=== PATIENT | male | born 1985 ===

== ENCOUNTER → 2021-03-04 14:02 | Outpatient (BNVA) | payer SELFPAY | PROVIDERS: PCP Internal Medicine; Visit Provider Physician Assistant | DX: Z02.79 Encounter for issue of other medical certificate (principal) ==

== ENCOUNTER 2021-08-18 11:43 | Outpatient (REF) | payer OTHER, MEDICAID, SELFPAY ==
--- NOTE | ~2021-08-18 | XR_ITS ---
EXAMINATION: XR SACRUM AND COCCYX: 3 VIEWS CLINICAL INFORMATION: Sacrococcygeal disorders COMPARISON: None FINDINGS: No acute fracture or dislocation. Sacrum is intact. Sacrococcygeal alignment maintained. Mild narrowing of the L5-S1 disc space. Mild lateral sacroiliac arthrosis manifest by subchondral sclerosis and small marginal osteophytes. XR/XR sacrum coccyx min 2V IMPRESSION: No acute findings. Mild loss of disc space height at L5-S1. Mild bilateral sacroiliac arthrosis.
== END 2021-08-18 11:44 | disposition home or self-care (01) ==
LOC: HO.XRAY 11:43
PROVIDERS: Absent Provider Internal Medicine; PCP Internal Medicine; Visit Provider Nurse Practitioner
DX: M53.3 Sacrococcygeal disorders, not elsewhere classified (principal)
CPT/HCPCS: 72220

== ENCOUNTER 2022-12-10 14:44 | Outpatient (REF) | payer OTHER, MEDICAID, SELFPAY ==
[2022-12-10 18:50] LABS: Influenza A PCR NEGATIVE (Negative); Influenza B PCR NEGATIVE (Negative); Resp Syncy Virus RNA Qual PCR NEGATIVE (Negative); SARS COV2 PCR INHOUSE NEGATIVE (Negative)
== END 2022-12-10 14:45 | disposition home or self-care (01) ==
LOC: HO.LAB 14:44
PROVIDERS: Visit Provider Nurse Practitioner Family
DX: Z20.822 Contact with and (suspected) exposure to COVID-19 (principal); R09.89 Other specified symptoms and signs involving the circulatory and respiratory systems
CPT/HCPCS: 0241U

== ENCOUNTER 2024-02-11 08:24 | Outpatient (REF) | payer OTHER, SELFPAY ==
[2024-02-11 08:34] LABS: MANUAL DIFF FLAG NO
[2024-02-11 09:11] LABS: Basophils Percent Auto 0.6 % (0-2); Eosinophils Absolute Auto 0.1 X10*3/uL (0.0-0.4); Eosinophils Percent Auto 1.6 % (0-4); Hematocrit 43.1 % (42.0-52.0); Hemoglobin 14.5 g/dl (14.0-18.0); Imm Gran Abs Auto 0.02 X10*3/uL (0.00-0.03); Imm Gran Pct Auto 0.3 % (0.0-0.4); Lymphocytes Absolute Auto 2.7 X10*3/uL (1.2-4.9); Lymphocytes Percent Auto 39.6 % (20-40); Mean Corpuscular HGB Conc 33.6 g/dl (31.0-36.0); Mean Corpuscular Hemoglobin 28.6 pg (27.0-33.0); Monocytes Absolute Auto 0.4 X10*3/uL (0.1-1.2); Monocytes Percent Auto 5.4 % (2-11); Neutrophils Absolute Auto 3.6 x10*3/uL (2.0-8.3); Neutrophils Percent Auto 52.5 % (45-73); Platelet Count 281 X10*3/uL (160-400); Red Blood Count 5.07 X10*6/uL (4.60-5.80); Red Cell Distribution Width 13.3 % (11.0-16.0); White Blood Count 6.8 X10*3/uL (4.8-10.8)
[2024-02-11 09:48] LABS: Estimated Average Glucose 120 mg/dL; Hemoglobin A1c % 5.8 % (<6.0)
[2024-02-11 10:07] LABS: Alanine Aminotransferase 43 U/L (0-40); Albumin Level 4.5 g/dL (3.5-5.0); Alkaline Phosphatase 94 U/L (39-117); Anion Gap 11 (12-20); Aspartate Amino Transferase 31 U/L (5-37); Bilirubin Direct 0.1 mg/dL (0.0-0.5); Bilirubin Total 0.4 mg/dL (0.0-1.0); Blood Urea Nitrogen 14 mg/dL (9-16); Calcium 9.2 mg/dL (8.4-10.2); Carbon Dioxide 24 mmol/L (22-29); Chloride 109 mmol/L (96-108); Cholesterol 214 mg/dL (<200); Estimated Glomerular Filt Rate > 60; Glucose Random 96 mg/dL (60-115); HDL Cholesterol 40 mg/dL (>40); LDL Cholesterol Calculated 142 mg/dL (<100); Potassium 4.3 mmol/L (3.3-5.1); Sodium 140 mmol/L (135-145); Total Protein 7.5 g/dL (6.5-8.0); Triglycerides 161 mg/dL (<150)
[2024-02-11 10:11] LABS: TSH reflex Free T4 1.67 uIU/mL (0.32-4.0); Vitamin D 25-OH Total 39.4 ng/mL (>30)
[2024-02-11 10:59] LABS: Folate 13.1 ng/mL (> or = 4.0); Vitamin B12 408 pg/mL (200-900)
[2024-02-17 13:28] LABS: Testosterone, Total 245 ng/dL (250-1100)
[2024-02-17 18:02] LABS: HIV RNA PCR Qn Copies Not Detected Copies/mL; HIV RNA PCR Qn Log Copies Not Detected Log cps/mL
== END 2024-02-11 08:25 | disposition home or self-care (01) ==
LOC: HO.LAB 08:24
PROVIDERS: PCP Internal Medicine; Visit Provider Internal Medicine
DX: R53.83 Other fatigue (principal); N52.8 Other male erectile dysfunction
CPT/HCPCS: 36415; 80048; 80061; 80076; 82306; 82607; 82746; 83036; 84403; 84443; 85025; 87536; 87900

== ENCOUNTER 2024-04-30 12:39 | Outpatient (AMB) | payer OTHER, SELFPAY ==
--- NOTE | 2024-04-30 12:56 | MHC.OFFVIS ---
Intake Visit Reasons: erectile dysfunction Intake Note: Patient is present for erctile dysfunction Urology Medication:none Antibiotic Allergy:none Blood Thinner:none Pneumatic Tube Fitter Required: No Allergies No Known Allergies [NO KNOWN ALLERGIES] Allergy (Unknown, Verified 04/30/24 12:58) UNKNOWN HPI Comments Details: Jordan is here for evaluation for ED and low testosterone, he complains of decreased libido and low energy. Labs--02/11/24--Total Test-245. Will recheck labs, Free and TT, LH, FH levels. [facility]MERLY [facility], [facility]1983 Medical History (Updated 06/17/24 @ 08:17 by Zuleika Bynum MD) Numbness and tingling in both hands Mild persistent asthma without complication Elevated blood pressure reading Other male erectile dysfunction Class 2 obesity due to excess calories without serious comorbidity with body mass index (BMI) of 37.0 to 37.9 in adult Fatigue Hypersomnia Acute anxiety Social History Patient Tobacco Use Status: Never used Tobacco Review of Systems Const All systems reviewed & are unremarkable except as noted in HPI and below Reports no additional complaints Eyes Reports no additional complaints ENT Reports no additional complaints Card Reports no additional complaints Resp Reports no additional complaints GI Reports no additional complaints Reports as per HPI Musc Reports no additional complaints Skin/Breast Reports system reviewed and no additional complaints, except as documented Neuro Reports no additional complaints Psych Reports no additional complaints Endo Reports no additional complaints Adonis/Lymph Reports no additional complaints Aller/Immun Reports no additional complaints Physical Exam Const General: healthy appearing, no acute distress and well developed Orientation/consciousness: patient oriented x3 HEENT Head: Yes normocephalic and Yes atraumatic Eyes Conjunctivae: conjunctivae normal Neck Neck: Yes normal visual inspection Chest Chest palpation & inspection: normal inspection of the chest Resp Effort & Inspection: normal respiratory effort Cardio Rate: regular rate GI Inspection: Yes normal to inspection Skin General skin exam: no rashes or lesions noted Neuro General: patient oriented x3 Extrem General: No pedal edema Psych Appearance: grossly normal Affect: normal affect Results AMB Urinalysis, Automated UA Leukoctes 0 Bisi/uL Last Edit by RICHMOND Mora on 04/30/24 13:09 UA Nitrite Negative Last Edit by RICHMOND Mora on 04/30/24 13:09 UA Urobilinogen 0.2 mg/dL Last Edit by RICHMOND Mora on 04/30/24 13:09 UA Protein 0 mg/dL Last Edit [facility]i [facility]:09 UA pH 6.0 Last Edit by Mauri Last [facility] on 04/30/24 13:09 UA Blood 0 Jace/uL Last Edit by Mauri Last [facility] on 04/30/24 13:09 UA Specific Gleason 1.010 Last Edit by Mauri Last [facility] on 04/30/24 13:09 UA Ketone Negative Last Edit by Mauri Last [facility] on 04/30/24 13:09 UA Bilirubin 0 mg/dL Last Edit by [facility] 04/[facility] 13:09 UA Glucose 0 mg/dL Last Edit by Mauri Last [facility] on 04/30/24 13:09 Results Reviewed Results Reviewed: Laboratory Last Values Urine pH (Auto) 6.0 04/30/24 13:08 Specific Gleason (Auto) 1.010 04/30/24 13:08 Urine Protein (Auto) 0 mg/dL 04/30/24 13:08 Glucose (UA)(Auto) 0 mg/dL 04/30/24 13:08 Urine Ketones (Auto) Negative 04/30/24 13:08 Urine Blood (Auto) 0 Jace/uL 04/30/24 13:08 Urine Nitrite (Auto) Negative 04/30/24 13:08 Urine Bilirubin (Auto) 0 mg/dL 04/30/24 13:08 Urine Urobilinogen (Auto) 0.2 mg/dL 04/30/24 13:08 Leukocyte Esterase (Auto) 0 Bisi/uL 04/30/24 13:08 Assessment & Plan Assessment & Plan (1) Low testosterone: Code(s): R79.89 - Other specified abnormal findings of blood chemistry Category: Medical (2) Erectile dysfunction: Code(s): N52.9 - Male erectile dysfunction, unspecified Category: Medical (3) Screening PSA (prostate specific antigen): Code(s): Z12.5 - Encounter for screening for malignant neoplasm of prostate Category: Medical Plan Will check labs, Free and TT, LH, FH levels, PSA Orders: Orders AMB Urinalysis Automated 04/30/24 Z13.9 - Encounter for screening, unspecified Patient Instructions: The patient had an opportunity to ask questions regarding treatment plan. The patient expressed understanding and agreement with the above treatment plan. The patient is aware they should contact our office by phone for worsening of their current condition or the appearance of new symptoms. Compliance is encouraged with any medications and followup testing that is ordered. It is a privilege to be allowed the opportunity to participate in the urologic care of your patient. If you have any questions or concerns regarding treatment for the above conditions please do not hesitate to contact me. The office telephone contact is [phone]. This note is constructed in part using voice recognition software. While every effort has been made to ensure accuracy senior information developer errors may have been included. Yours sincerely, Zuleika Bynum MD Coding Level of Care Code New Pt Level 3 (96050) Diagnoses Low testosterone R79.89 Erectile dysfunction N52.9 Screening PSA (prostate specific antigen) Z12.5
== END 2024-04-30 13:47 | disposition home or self-care (01) ==
PROVIDERS: PCP Internal Medicine; Visit Provider Urology
DX: R79.89 Other specified abnormal findings of blood chemistry (principal); N52.9 Male erectile dysfunction, unspecified; Z12.5 Encounter for screening for malignant neoplasm of prostate
CPT/HCPCS: 99203

== ENCOUNTER → 2024-04-30 12:39 | Outpatient (BNVA) | payer OTHER, SELFPAY | PROVIDERS: PCP Internal Medicine; Visit Provider Urology | DX: N52.9 Male erectile dysfunction, unspecified (principal); R79.89 Other specified abnormal findings of blood chemistry | CPT/HCPCS: 81003 ==

== ENCOUNTER 2024-06-18 09:14 | Outpatient (REF) | payer OTHER, SELFPAY ==
[2024-06-18 10:12] LABS: Hematocrit 41.9 % (42.0-52.0); Hemoglobin 13.6 g/dl (14.0-18.0); Mean Corpuscular HGB Conc 32.5 g/dl (31.0-36.0); Mean Corpuscular Hemoglobin 28.2 pg (27.0-33.0); Mean Corpuscular Volume 86.9 fL (80.0-98.0); Mean Platelet Volume 10.1 fL (9.4-12.4); Platelet Count 271 X10*3/uL (160-400); Red Blood Count 4.82 X10*6/uL (4.60-5.80); Red Cell Distribution Width 13.8 % (11.0-16.0); White Blood Count 7.2 X10*3/uL (4.8-10.8)
[2024-06-18 10:46] LABS: Estimated Average Glucose 117 mg/dL; Hemoglobin A1C 131.7427 umol/L; Hemoglobin A1c % 5.7 % (<6.0)
[2024-06-18 11:24] LABS: PSA,Total (Free>4and<10) 0.38 ng/mL (0.00-4.00)
[2024-06-19 10:33] LABS: Follicle Stimulating Hormone 4.5 mIU/mL (1.4-12.8); Lutenizing Hormone 2.6 mIU/mL (1.5-9.3); Prolactin 6.9 ng/mL (2.0-18.0)
[2024-06-23 13:52] LABS: Testosterone, Free 37.9 pg/mL (35.0-155.0); Testosterone, Total 219 ng/dL (250-1100)
== END 2024-06-18 09:15 | disposition home or self-care (01) ==
LOC: HO.LAB 09:14
PROVIDERS: PCP Internal Medicine; Visit Provider Urology
DX: N52.9 Male erectile dysfunction, unspecified (principal); Z12.5 Encounter for screening for malignant neoplasm of prostate; R79.89 Other specified abnormal findings of blood chemistry
CPT/HCPCS: 36415; 83001; 83002; 83036; 84146; 84153; 84402; 84403; 85027

== ENCOUNTER 2024-07-26 08:18 | Outpatient (AMB) | payer OTHER, SELFPAY ==
--- NOTE | 2024-07-26 07:44 | A.OFFVIS_ITS ---
Intake Visit Reasons: 7w/labs Intake Note: Patient is present for 7w/labs Urology Medication:none Antibiotic Allergy:none Blood Thinner:none Label Printer Required: No Allergies No Known Allergies [NO KNOWN ALLERGIES] Allergy (Unknown, Verified 04/30/24 12:58) UNKNOWN Medication List - Last Reconciled 07/26/24 by Zuleika Bynum MD albuterol sulfate 90 mcg/actuation (Ventolin HFA) 1 inh inhalation QID PRN 30 days albuterol sulfate 90 mcg/actuation 2 puffs inhalation Q6H PRN albuterol-budesonide 90-80 mcg/actuation 2 inhalations inhalation DAILY PRN fluticasone propionate 50 mcg/actuation (Flonase Allergy Relief) 1 spray intranasal Q12H 30 days tadalafil (Cialis) 5 mg PO DAILY testosterone cypionate (Depo-Testosterone) 200 mg subcut QWEEK HPI Comments Details: 07/26/24--Jordan is here in follow-up post labs. He complains of decreased libido and ED. I have reviewed labs with the patient FSH, LH and prolactin are within normal limits testosterone remains low. Discussed testosterone replacement and will start on Cialis 5 mg. Follow-up in 12 weeks repeat testosterone levels and hematocrit. 06/18/24--PSA 0.38, TT-219, FT-37.9 04/30/24--Jordan is here for evaluation for ED and low testosterone, he complains of decreased libido and low energy. Labs--02/11/24--Total Test-245. Will recheck labs, Free and TT, LH, FH levels. [facility] Medical History Numbness and tingling in both hands Mild persistent asthma without complication Elevated blood pressure reading Other male erectile dysfunction Class 2 obesity due to excess calories without serious comorbidity with body mass index (BMI) of 37.0 to 37.9 in adult Fatigue Hypersomnia Acute anxiety Social History Patient Tobacco Use Status: Never used Tobacco Review of Systems Const All systems reviewed & are unremarkable except as noted in HPI and below Reports no additional complaints Eyes Reports no additional complaints ENT Reports no additional complaints Card Reports no additional complaints Resp Reports no additional complaints GI Reports no additional complaints Reports as per HPI Musc Reports no additional complaints Skin/Breast Reports system reviewed and no additional complaints, except as documented Neuro Reports no additional complaints Psych Reports no additional complaints Endo Reports no additional complaints Adonis/Lymph Reports no additional complaints Aller/Immun Reports no additional complaints Results AMB Urinalysis, Automated UA Leukoctes 0 Bisi/uL Last Edit by RICHMOND Mora on 07/26/24 09:23 UA Nitrite Negative Last Edit by Mauri Last [facility] on 07/26/24 09:23 UA Urobilinogen 0.2 mg/dL Last Edit by Mauri Last [facility] on 07/26/24 09:2 3 UA Protein 0 mg/dL Last Edit by Mauri Last [facility] on 07/26/24 09:23 UA pH 6.0 Last Edit by Mauri Last [facility] on 07/26/24 09:23 UA Blood 10 Jace/uL Last Edit by Mauri Last [facility] on 07/26/24 09:23 UA Specific [place] 1.030 Last Edit by Mauri Last [facility] on 07/26/24 09: 23 UA Ketone Negative Last Edit by Mauri Last [facility] on 07/26/24 09:23 UA Bilirubin 0 mg/dL Last Edit by Mauri Last [facility] on 07/26/24 09:23 UA Glucose 0 mg/dL Last Edit by Mauri Last [facility] on 07/26/24 09:23 Results Reviewed Results Reviewed: Laboratory Last Values Urine pH (Auto) 6.0 07/26/24 09:22 Specific [place] (Auto) 1.030 07/26/24 09:22 Urine Protein (Auto) 0 mg/dL 07/26/24 09:22 Glucose (UA)(Auto) 0 mg/dL 07/26/24 09:22 Urine Ketones (Auto) Negative 07/26/24 09:22 Urine Blood (Auto) 10 Jace/uL 07/26/24 09:22 Urine Nitrite (Auto) Negative 07/26/24 09:22 Urine Bilirubin (Auto) 0 mg/dL 07/26/24 09:22 Urine Urobilinogen (Auto) 0.2 mg/dL 07/26/24 09:22 Leukocyte Esterase (Auto) 0 Bisi/uL 07/26/24 09:22 Assessment & Plan Assessment & Plan (1) Low testosterone: Code(s): R79.89 - Other specified abnormal findings of blood chemistry Category: Medical (2) Erectile dysfunction: Code(s): N52.9 - Male erectile dysfunction, unspecified Category: Medical (3) Screening PSA (prostate specific antigen): Code(s): Z12.5 - Encounter for screening for malignant neoplasm of prostate Category: Medical (4) Low libido: Code(s): R68.82 - Decreased libido Category: Medical Plan Discussed testosterone replacement and will start on Cialis 5 mg. Follow-up in 12 weeks repeat testosterone levels and hematocrit. 06/18/24--PSA 0.38, TT-219, FT-37.9 Orders: Orders AMB Urinalysis Automated Today Z13.9 - Encounter for screening, unspecified Medications: New testosterone cypionate (Depo-Testosterone) 100 mg (0.5 mL) q week inject SQ 200 mg subcut QWEEK 4 mL 1RF use 1/2 mL q week tadalafil (Cialis) [id number] [facility] [id number] Member [id number] 5 mg PO DAILY 30 tabs 3RF Patient Instructions: The patient had an opportunity to ask questions regarding treatment plan. The patient expressed understanding and agreement with the above treatment plan. The patient is aware they should contact our office by phone for worsening of their current condition or the appearance of new symptoms. Compliance is encouraged with any medications and followup testing that is ordered. It is a privilege to be allowed the opportunity to participate in the urologic care of your patient. If you have any questions or concerns regarding treatment for the above conditions please do not hesitate to contact me. The office telephone contact is [phone]. This note is constructed in part using voice recognition software. While every effort has been made to ensure accuracy heel boom operator errors may have been included. Yours sincerely, Zuleika Bynum MD Coding Level of Care Code Est Pt Level 4 (84653) Diagnoses Low testosterone R79.89 Erectile dysfunction N52.9 Screening PSA (prostate specific antigen) Z12.5 Low libido R68.82
== END 2024-07-26 09:45 | disposition home or self-care (01) ==
LOC: HO.HUSH 08:19
PROVIDERS: PCP Internal Medicine; Visit Provider Urology
DX: R79.89 Other specified abnormal findings of blood chemistry (principal); N52.9 Male erectile dysfunction, unspecified; Z12.5 Encounter for screening for malignant neoplasm of prostate; R68.82 Decreased libido; Z13.9 Encounter for screening, unspecified
CPT/HCPCS: 99214

== ENCOUNTER → 2024-07-26 08:18 | Outpatient (BNVA) | payer OTHER, SELFPAY | PROVIDERS: PCP Internal Medicine; Visit Provider Urology | DX: R68.82 Decreased libido (principal); R79.89 Other specified abnormal findings of blood chemistry; N52.9 Male erectile dysfunction, unspecified | CPT/HCPCS: 81003 ==

== ENCOUNTER 2024-11-22 09:09 | Outpatient (AMB) | payer OTHER, SELFPAY ==
--- OUTSIDE RECORDS SUMMARY | 2024-11-22 09:57 | XMS_ITS | Data Portability ---
Author Organization [employer] [facility], [address] Address [address] [place] [address] Assessment No assessment recorded. Plan of Treatment Reminders Order Date Submit Date Provider Last Modified By Organization Details Last Modified Time Details Appointments None record ed. Lab None record ed. Referral None record ed. Procedures None record ed. Surgeries None record ed. Imaging None record ed. Medication Orders None record ed. Patient TargetsNo targets recorded. Patient InstructionsNo instructions recorded. Reason for Referral None Reported. Procedures Surgical History Date Name Laterality Status Provider Name and Address Organization Details Recorded Time 3 OC-UDS Send Out Template DOT completed EAN HARVEY [employer] 01/27/2023 09:45:01 3 OC[facility]DOT PHYSICAL [facility] [employer] 01/27/2023 09:24:53 Imaging Results None recorded. Procedure Notes None recorded. Medical Equipment None Reported. Vitals None Recorded Social History None recorded. Functional Status None recorded. Mental Status None recorded. Family History Nothing Reported. Medical History No medical history recorded. Past Encounters Encounter ID Performer Location Encounter Start Date Encounter Closed Date Diagnosis/Indication Diagnosis SNOMED-CT Code Diagnosis ICD10 Code Diagnosis Note [id number] [address] [facility] [address] [place] [address] 06/05/2020 12:27:07 06/05/2020 12:55:15 [id number] Dhir[facility] Fregoso [facility] [address] 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 [id number] [place] Jansen to
--- OUTSIDE RECORDS SUMMARY | 2024-11-22 09:57 | XMS_ITS | Clinical Summary ---
Demographics Address [address] [facility] [address] [place] [address] Mobile Phone Home Phone Work Phone Email Address Preferred Language es Marital Status Buddhism Affiliation Unknown Race Other Race Ethnic Group or Author Organization [employer] Address [address] [place] [address] [address] [place] [address] Care Team Providers Care Food Operations Manager Name Role Phone Keara Leiva MD Primary Care Provide r Allergies No known active allergies Medications fluticasone (Flonase) 50 MCG/ACT nasal sprayIndications: Mild persistent asthma without complication Administer 1 spray into each nostril Once per day. 16 g 2 4 Active albuterol 108 (90 Base) MCG/ACT inhalerIndication s:Mild persistent asthma without complication Inhale 2 puffs every 6 (six) hours if needed for wheezing. 18 g 4 02/07/20 25 Active Blood Pressure Monitoring (Blood Pressure Cuff) miscIndications:E levated blood pressure reading 1 each Once daily. 1 each 4 Active lisinopril (Prinivil) 10 MG tabletIndications :Primary hypertension Take 1 tablet (10 mg) by mouth Once per day. 30 tablet 4 03/12/20 25 Active budesonide (Pulmicort) 90 MCG/ACT inhalerIndication s:Mild persistent asthma without complication Inhale 1 puff in the morning and at bedtime. Rinse mouth with water after use to reduce aftertaste and incidence of candidiasis. Do not swallow. 1 each 4 06/08/20 25 Active albuterol (ProAir HFA) 108 (90 Base) MCG/ACT inhalerIndication s:Seasonal allergies Inhale 2 puffs every 4 (four) hours if needed for wheezing or shortness of breath. 18 g 2 4 Active cetirizine (ZyrTEC) 10 MG tabletIndications :Seasonal allergies TAKE 1 TABLET BY MOUTH EVERY DAY 30 tablet 11 5 Active omeprazole OTC (PriLOSEC OTC) 20 MG EC tabletIndications :Dyspepsia TAKE 1 TABLET BY MOUTH EVERY DAY. DO NOT CRUSH, CHEW OR SPLIT. 30 tablet 11 5 Active Active Problems Problem Noted Date Diagnosed Date Viral upper respiratory tract infection 06/19/20 Assessment & Plan (06/19/2024 4:33 PM EDT): I advise to drink plenty of fluids and rest Acetaminophen PRN I send to pharmacy COVID 19 tests Syncope 06/19/2024 Assessment & Plan (06/19/2024 4:34 PM EDT): I will provide patient with information of his cardiology referral and sleep study Primary hypertension 03/12/2024 Assessment & Plan (06/19/2024 4:33 PM EDT): Stable c/w same interventions Assessment & Plan (03/12/2024 4:01 PM EDT): Maintenance: BMP: up to date Lipid Panel: up to date ASCVD Risk: 2.5% low - Aerobic exercise to reduce BP. Initial goal of 30 min walk 3-5x/week. Increase as tolerated. - low-sodium diet (goal: <2g/day) and heart healthy diet such as DASH to reduce BP and prevent ASCVD. - Home BP monitoring 1-2 x day with goal of <140/90. - Seek immediate medical attention for chest pain, palpitations, SOB, syncope, or sudden changes in mental status. - Do not change or discontinue current prescriptions without first consulting health care provider Prediabetes 03/12/2024 Assessment & Plan (03/12/2024 3:59 PM EDT): Today extensive discussion was done about life style modifications I advise healthy diet (low calorie) and cardiovascular exercise Witnessed episode of apnea 03/12/2024 Hypersomnia 02/07/2024 Assessment & Plan (02/07/2024 1:55 PM EDT): Sleep studies ordered Fatigue 02/07/2024 Assessment & Plan (02/07/2024 1:58 PM EDT): Blood work ordered to be check on next appointment Class 2 obesity due to exces s calories without serious comorbidity with body mass index (BMI) of 37.0 to 37.9 in adult 02/07/2024 Assessment & Plan (02/07/2024 1:57 PM EDT): Today extensive discussion was done about life style modifications I advise healthy diet (low calorie) and cardiovascular exercise Other male erectile dysfunction 02/07/2024 Elevated blood pressure reading 02/07/2024 Assessment & Plan (02/07/2024 1:56 PM EDT): I advise low Na diet and weight reduction BP cuff prescribed I advise to log his BP for next appointment Mild persistent asthma without complication 01/24 Assessment & Plan (02/07/2024 1:56 PM EDT): Patient educated to avoid asthma triggers Renewal of his inhalers today Numbness and tingling in both hands 02/07/2024 Assessment & Plan (02/07/2024 1:55 PM EDT): Possible CTS, I will prescribe bilateral wrist braces to be wear at bed time Seasonal allergies 02/06/2024 Anxiety 10/25/2018 Assessment & Plan (02/07/2024 1:57 PM EDT): Patient reports he is currently stable.We talked about non-medication interventions for anxiety including exercise, meditation, counseling, mindfulness practices. Also recommend consideration for medication start for persistent daily anxiety negatively impacting quality of life and activities. Encounters Date Type Department Care Team Description 10/04/2024 Refill [facility] [address] [place] [address] [place], [facility] Seasonal allergies; Dyspepsia from Last 3 Months Social History Tobacco Use Types Packs/Day Years Used Date Smoking Tobacco: Never Passive Smoke Exposure: Never Smokeless Tobacco: Never Tobacco Cessation:Counseling Given: Not Answered Depression Answer Date Recorded Patient Health Questionnaire-9 Score 0 03/12/2024 Patient Health Questionnaire-9 Score 0 03/12/2024 Last PHQ-9: Questionnaire Data Not on file 0 03/12/2024 Depression Answer Date Recorded Patient Health Questionnaire-2 Score 0 03/12/2024 Sex and Gender Information Value Date Recorded Sex Assigned at Male 07/26/2022 10:34 AM EDT Legal Sex Male 10:34 AM EDT Gender Identity Male 06/12/2024 9:53 AM EDT Sexual Orientation Straight 06/12/2024 9: 53 AM EDT Last Filed Vital Signs Vital Sign Reading Time Taken Comments Blood Pressure 120/68 06/08/2024 1:36 PM EDT Pulse 98 06/08/2024 1:36 PM EDT Temperature 37.1 ??C (98.7 ??F) 06/08/2024 1:36 PM ED T Respiratory Rate 20 06/08/2024 1:36 PM EDT Oxygen Saturation 97% 06/08/2024 1:36 PM EDT Inhaled Oxygen Concentration - - Weight 113 kg (249 lb 6.4 oz) 06/08/2024 1:36 PM EDT Height 174 cm (5' 8.5 ) 06/08/2024 1:36 PM EDT Body Mass Index 37.37 06/08/2024 1:36 PM EDT Plan of Treatment Health Maintenance Due Date Last Done Comments SDOH Screening 1983 Alcohol/Substance Use Screening 1995 Family Planning (PISQ) 1998 DTaP/Tdap/Td Vaccines (1 - Tdap) 2002 Hepatitis B Vaccines (1 of 3 - 19+ 3-dose series) 2002 Pneumococcal Vaccine: Pediatrics (0 to 5 Years) and At-Risk Patients (6 to 49) Years) (1 of 2 - PCV) 2002 COVID-19 Vaccine (2023-2 5 season) 2024 Influenza Vaccine (#1) 2024 Depression Screening 03/12/2025 03/12/2024, 03/12/2024 Tobacco Screening 06/08/2025 06/08/2024 Diabetes: Hemoglobin A1C 06/18/2025 024, 02/11/2024, 08/18/2021 Lipid Panel 02/10/2029 02/11/2024, 08/18/2021 Zoster Vaccines (1 of 2) 2033 RSV Patients and Patients Aged 60 years or older (1 - 1-dose 75+ series) 2058 HIV Screening Completed 08/18/2021 Hepatitis C Screening Completed 08/18/2021 HIB Vaccines Aged Out No longer eligi ble based on patient's age to complete this topic HPV Vaccines Aged Out No longer eligi ble based on patient's age to complete this topic Hepatitis A Vaccines Aged Out No long er eligible based on patient's age to complete this topic IPV Vaccines Aged Out No longer eligi ble based on patient's age to complete this topic Meningococcal Vaccine Aged Out No zeny brandt eligible based on patient's age to complete this topic RSV under 20 months Aged Out No longe r eligible based on patient's age to complete this topic Rotavirus Vaccines Aged Out No longer eligible based on patient's age to complete this topic Procedures Procedure Name Priority Date/Time Associated Diagnosis Comments HEMOGLOBIN A1C Routine 06/18/2024 9:29 AM EDT LIPID PANEL, STANDARD Routine 02/11/2024 8:33 AM EDT Other fatigue ZZZ HISTORICAL HEPATITIS C AB W/REFL TO HCV RNA, QN, PCR Routine 08/18/2021 10:53 AM EST HIV 1/2 ANTIGEN/ANTIBODY, FOURTH GENERATION W/RFL Routine 08/18/2021 10:53 AM EST from Last 3 Months or Most Recently Relevant to Health Maintenance Results * Hemoglobin A1c (06/18/2024 9:29 AM EDT) Hemoglobin A1c 5.7 <6.0 % [facility] Comment:Hemoglobin A1C Refer ence Range Adults: 4.8 - 6.0 % Non diabetic: < 6.0 % Goal: < 7.0 %Additional Action Suggested: > 8.0 %Note: Hemoglobin A1c results are invalid for patients with abnormal amounts of HbF. Blood transfusions may impact the HbA1c concentration in the patient sample. Estimated Average Glucose 117 mg/dL [facility] Comment:eAG = Estimated ave rage glucose which is %A1C expressed asaverage glucose, using the formula of the P4W-IgknrqnSphsopc Glucose study (ADAG), Diabetes Care, Vol.31,#8,Apr. 2007 06/18/2024 9:29 AM EDT 06/18/2024 9:29 AM EDT us Generic External Data Provider LAB BLOOD ORDERAB LES Final Result [facility] [address] [place] [phone] * (ABNORMAL) Lipid Panel, Standard (02/11/2024 8:33 AM EDT) Triglycerides 161(H) <150 mg/dL [facility] Comment:Desirable Triglyceri de: less than 150 mg/dLBorderline High Triglyceride 150-199 mg/dLHigh Triglyceride: 200-499 mg/dLVery High Triglyceride: greater than or equal to 5OO mg/dL Cholesterol 214(H) <200 mg/dL [facility] Comment:Desirable Cholestero l: less than 200 mg/dLBorderline High Cholesterol: 200-239 mg/dLHigh Cholesterol: greater than 239 mg/dL LDL Cholesterol Calculated 142(H) <100 mg/dL [facility] Comment:Desirable LDL: less than 100 mg/dLNear Optimal/Above Optimal LDL: 110- 129 mg/dLBorderline High LDL: 130-159 mg/dLHigh LDL: 160-189 mg/dLVery High LDL: greater than or equal to 190 mg/dL HDL Cholesterol 40(L) >40 mg/dL [facility] Comment:Desirable HDL: great er than 40 mg/dL Note: This HDL assay may give artificially low results in patients with liver disease. Blood Venous blood specimen / Unknown 02/11/2024 8:33 AM EDT 02/11/2024 8:33 AM EDT us Keara Brito MD LAB BLOOD ORDERABLES Final Result [facility] [address] [place] [phone] [phone] * HEPATITIS C AB W/REFL TO HCV RNA, QN, PCR (08/18/2021 10:53 AM EST) HEPATITIS C ANTIBODY NON-REACT ELADIO NON-REACT ELADIO [facility] INDEX 0.02 <1.00 [facility] Comment: ?? HCV antibody was non-reactive. There is no laboratory ?? evidence of HCV infection. ?? In most cases, no further action is required. However, if recent HCV exposure is suspected, a test for HCV RNA (test code 91003) is suggested. ?? For additional information please refer to http://[facility].[place]/faq/ZYF39f0 (This link is being provided for informational/ educational purposes only.) ?? 08/18/2021 10:5 3 AM EST Cindy Dorado NP HISTORICAL/NON ORDERABLE LABS F inal Result [facility] [address] * HIV 1/2 ANTIGEN/ANTIBODY,FOURTH GENERATION W/RFL (08/18/2021 10:53 AM EST) HIV-1/2 ANTIGEN AND ANTIBODIES, 4TH GENERATION W/ REFLEX NON-REACT ELADIO NON-REACT ELADIO [facility] Comment: HIV-1 antigen and HIV-1/HIV-2 antibodies were not detected. There is no laboratory evidence of HIV infection. ?? PLEASE NOTE: This information has been disclosed to you from records whose confidentiality may be protected by state law. ??If your state requires such protection, then the state law prohibits you from making any further disclosure of the information without the specific written consent of the person to whom it pertains, or as otherwise permitted by law. A general authorization for the release of medical or other information is NOT sufficient for this purpose. ? For additional information please refer to http://education.[employer]IN.[place]/faq/WAH493 (This link is being provided for informational/ educational purposes only.) ? The performance of this assay has not been clinically validated in patients less than 2 years old. ?? 08/18/2021 10:5 3 AM EST us Cindy Dorado TEMPERING MACHINE OPERATOR LAB BLOOD ORDERABLES Final Resu lt [facility] [address] from Last 3 Months or Most Recently Relevant to Health Maintenance Insurance * Guarantor: Jordan Merlos Account Type Relation to Patient Date of Phone Billing Address Personal/Family Self 1985 [address] [place] [address] [employer]AT[employer] * Guarantor: Jordan Merlos Account Type Relation to Patient Date of Phone Billing Address Personal/Family Self 1985 [address] [place] [address] * Guarantor: Jordan Merlos Account Type Relation to Patient Date of Phone Billing Address Personal/Family Self 1985 [address] [place] [address] * Guarantor: Jordan Merlos Account Type Relation to Patient Date of Phone Billing Address Personal/Family Self 1985 [address] [place] [address] Care Teams Food Operations Manager Relationship Specialty Start Date End Date Keara Leiva MD [address] [place] [phone] PCP - General Family Medicine 08/24/18
--- OUTSIDE RECORDS SUMMARY | 2024-11-22 09:57 | XMS_ITS | Encounter Summary ---
Demographics Address [address] [facility] [address] [place] [address] Mobile Phone Home Phone Work Phone Email Address Preferred Language es Marital Status Judaism Affiliation Unknown Race Other Race Ethnic Group or Author Organization [employer] Address [address] [place] [address] Care Team Providers Care Rail Car Repair Carman Name Role Phone Keara Leiva MD Primary Care Provide r Encounter Details Date Type Department Care Team ([facility] st Contact Info) Description 06/11/2024 Orders Only [facility] [address] [place], [place] [phone] [facility] [address] [place] [address] Social History Tobacco Use Types Packs/Day Years Used Date Smoking Tobacco: Never Passive Smoke Exposure: Never Smokeless Tobacco: Never Depression Answer Date Recorded Patient Health Questionnaire-9 [...] Orientation Straight 06/12/2024 9: 53 AM EDT documented as of this encounter Plan of Treatment Not on file documented as of this encounter Visit Diagnoses Not on filedocumented in this encounter Additional Health Concerns Assessment Noted Time PHQ-9 Depression Total Score: 0 03/12/20 24 2:22 PM EDT documented as of this encounter Care Teams Rail Car Repair Carman Relationship Specialty Start Date End Date Keara Leiva MD [address] [place] [address] PCP - General Family Medicine 08/24/18 documented as of this encounter
--- OUTSIDE RECORDS SUMMARY | 2024-11-22 09:57 | XMS_ITS | Encounter Summary ---
Demographics Address [address] [place] [address] [address] [place] [address] Mobile Phone Home Phone Work Phone Email Address Preferred Language es Marital Status Episcopalian Affiliation Unknown Race Other Race Ethnic Group or Author Organization [employer] [facility] Address [address] [place] [address] 7 [place] [address] Care Team Providers Care Sound Engineering Technician Name Role Phone Keara Leiva MD Primary Care Provide r Encounter Details Date Type Department Care Team (Latest Contact Info) Description 10/05/2018 Abstract [facility] CONVERSIONS Dental, Provider, DDS Social History Tobacco Use Types Packs/Day Years Used Date Smoking Tobacco: Never Assessed Sex and Gender Information Value Date Recorded Sex Assigned at Male 07/26/2022 10:34 AM EDT Legal Sex Male 10:34 AM EDT Gender Identity Male 06/12/2024 9:53 AM EDT Sexual Orientation Straight 06/12/2024 9: 53 AM EDT documented as of this encounter Plan of Treatment Not on file documented as of this encounter Visit Diagnoses Not on filedocumented in this encounter Care Teams Sound Engineering Technician Relationship Specialty Start Date End Date Keara Leiva MD [address] [place] [id number] PCP - General Family Medicine 08/24/18 documented as of this encounter
--- OUTSIDE RECORDS SUMMARY | 2024-11-22 09:57 | XMS_ITS | Clinical Summary ---
Author Organization [employer] [facility] ity Address [address] [place] [address] Care Team Providers Care Trial Manager Name Role Phone Unavailable Primary Care Provider Unavailabl e Social History Tobacco Use Types Packs/Day Years Used Date Smoking Tobacco: Never Assessed Sex and Gender Information Value Date Recorded Sex Assigned at Not on file Legal Sex Male 8:28 AM EST Gender Identity Not on file Sexual Orientation Not on file Plan of Treatment Health Maintenance Due Date Last Done Comments DTaP,Tdap,and Td Vaccines (1 - Tdap) 2002 Hepatitis B Vaccines (1 of 3 - 19+ 3-dose series) 2002 COVID-19 Vaccine (2023-2 5 season) 2024 Influenza Vaccine (#1) 2024 HIB Vaccines Aged Out No longer eligi [...] on patient's age to complete this topic MMR Vaccines Aged Out No longer eligi ble based on patient's age to complete this topic Meningococcal ACWY Vaccine Aged Out N o longer eligible based on patient's age to complete this topic Meningococcal B Vacine Aged Out No lo nger eligible based on patient's age to complete this topic Pneumococcal Vaccine: Pediat rics (0 to 5 Years) and At-Risk Patients (6 to 64 Years) Aged Out No longer eligible b ased on patient's age to complete this topic RSV Immunization Patients Un mukul 20 months Aged Out No longer eligible b ased on patient's age to complete this topic Varicella Vaccines Aged Out No longer eligible based on patient's age to complete this topic
--- NOTE | 2024-11-22 10:01 | AM.OFFWIN_ITS ---
Intake Vital Signs 11/22/24 10:11 Weight 246 lb 1 oz BP 124/80 Blood Pressure Location Lt brachial Position Sitting Pulse 96 Pulse Source Pulse Oximeter Temp 98.0 F Temp Source Oral Pulse Oximetry (%) 97 Oxygen Delivery Method Room Air Intake Visit Reasons: EP Asthma/cough Intake Note: Patient here for cough, chest congestion that has been present for over 1 month. Patient Tobacco Use Status: Never used Tobacco Allergies No Known Allergies [NO KNOWN ALLERGIES] Allergy (Unknown, Verified 11/22/24 10:12) UNKNOWN Do you need a note to return to daycare/school/sports/work: No HPI HPI Comments History of Present Illness Details History - The patient is a 39-year-old male pres enting with a persistent cough and difficulty breathing. - Has had exacerbated symptoms of asthma and allergic rhinitis over the past month, intensifying in the last three weeks. - Current management with allergy medica tion, Flonase, and Albuterol is ineffective. - Experiencing nocturnal shortness of br eath, back pain from coughing, nasal congestion, and morning green sputum production. - Reports headaches, fatigue, and signif icant nocturnal coughing, leading to poor sleep. - Increased ear pressure over the past t wo days. - States he has allergies which are seas onal and environmentally triggered. Physical Exam General: Cooperative, healthy appearing, comfortable and no acute distress Orientation/consciousness: Patient oriented x3 Limitations: No limitations Head: Normal to inspection Ears: Hearing grossly normal bilaterally, external ears normal and TM's normal bilaterally Nose: Normal external nose present, Normal nares present and No nasal discharge present Face and sinus: Normal facial exam and Sinuses tender Mouth: Normal oral and palatal mucosa present and moist mucous membranes Throat: Yes tonsils normal, Yes uvula midline. Posterior oropharynx erythema Eyes: Appearance normal, both eyes and all related structures Neck: Normal visual inspection Respiratory: Clear to auscultation bilaterally. Normal respiratory effort, able to speak in complete sentences, Actively coughing, no respiratory distress, not tachypneic, no tripod positioning and no use of accessory muscles Cardiovascular: Regular rate and rhythm. Normal S1 and S2 Skin: No rashes or lesions noted Neuro: Patient oriented x3 Extremities: Normal to inspection and Yes no clubbing, cyanosis or edema [facility] Medical History Numbness and tingling in both hands Mild persistent asthma without complication Elevated blood pressure reading Other male erectile dysfunction Class 2 obesity due to excess calories without serious comorbidity with body mass index (BMI) of 37.0 to 37.9 in adult Fatigue Hypersomnia Acute anxiety Social History Patient Tobacco Use Status: Never used Tobacco Review of Systems Const All systems reviewed & are unremarkable except as noted in HPI and below Physical Exam Vital Signs: Last Vital Signs Temp 98.0 F 11/22/24 10:11 Pulse 96 11/22/24 10:11 BP 124/80 11/22/24 10:11 Pulse Ox 97 11/22/24 10:11 Oxygen Delivery Method Room Air 11/22/24 10:11 Assessment & Plan Assessment & Plan (1) Acute exacerbation of asthma with allergic rhinitis: Code(s): J45.901 - Unspecified asthma with (acute) exacerbation Plan: A prednisone taper has been initiated to manage inflammation from exacerbated asthma and allergic rhinitis, prescribing a higher initial dose decreasing over six days to improve respiratory function. This regimen aims to avoid evening doses to reduce sleep interference. A cough suppressant is also prescribed to control coughing and aid sleep. To rule out viral infections, tests for influenza, COVID-19, and RSV have been dispatched, and their results will be followed up with the patient. The patient is advised to continue current asthma and allergy management but to monitor the effect of Albuterol on heart rate, ensuring the use of inhalers is cautious and assess the subsequent clinical course as needed. Patient was informed and verbally consented to the use of an ambient scribe for clinic note documentation during this visit Medications: New benzonatate 200 mg PO BEDTIME PRN 10 caps 0RF cough methylprednisolone PO PER PKG DIR for 6 days 21 ea 0RF Coding Level of Care Code New Pt Level 3 (31459) Diagnoses Acute exacerbation of asthma with allergic rhinitis J45.901
[2024-11-22 10:11] VITALS: BP 124/80; PULSE 96; TEMP 36.7; O2SAT 97
== END 2024-11-22 10:27 | disposition home or self-care (01) ==
PROVIDERS: PCP Internal Medicine; Visit Provider Physician Assistant
DX: J45.901 Unspecified asthma with (acute) exacerbation (principal)

== ENCOUNTER 2024-11-22 09:09 | Outpatient (REF) | payer OTHER, SELFPAY ==
--- OUTSIDE RECORDS SUMMARY | 2024-11-22 15:52 | XMS_ITS | Clinical Summary ---
Author Organization [employer] [facility] ity Address [address] [place] [address] Care Team Providers Care Fermenter Operator Name Role Phone Unavailable Primary Care Provider [...]
--- OUTSIDE RECORDS SUMMARY | 2024-11-22 15:52 | XMS_ITS | Encounter Summary ---
Demographics Address [address] [facility] [address] [place] [address] Mobile Phone Home Phone Work Phone Email Address Preferred Language es Marital Status Christianity Affiliation Unknown Race Other Race Ethnic Group or Author Organization [employer] Address [address] [facility] [address] [place] [address] Care Team Providers Care Pediatric Speech Language Pathologist Name Role Phone Keara Leiva MD Primary Care Provide r Encounter Details Date Type Department Care Team ([facility] st Contact Info) Description 06/11/2024 Orders Only [facility] [address] [place], [place] [phone] [facility] [address] [place] [address] Social History Tobacco Use Types Packs/Day Years [...] documented as of this encounter Care Teams Pediatric Speech Language Pathologist Relationship Specialty Start Date End Date Keara Leiva MD [address] [place] [address] PCP - General Family Medicine 08/24/18 documented as of this encounter
--- OUTSIDE RECORDS SUMMARY | 2024-11-22 15:53 | XMS_ITS | Clinical Summary ---
Demographics Address [address] [place] [address] Mobile Phone Home Phone Work Phone Email Address Preferred Language es Marital Status Yarsani Affiliation Unknown Race Other Race Ethnic Group or Author Organization [employer] Address [address] [place] [address] [address] [place] [address] Care Team Providers Care Business Administrator Name Role Phone Keara Leiva MD Primary [...] Type Department Care Team Description 10/04/2024 Refill [facility] [address] [place] [address] [place], [facility] Seasonal allergies; Dyspepsia from Last 3 [...] AM EDT) Hemoglobin A1c 5.7 <6.0 % [facility] Comment:Hemoglobin A1C Refer ence Range Adults: 4.8 - 6.0 % Non diabetic: < 6.0 % Goal: < 7.0 %Additional Action Suggested: > 8.0 %Note: Hemoglobin A1c results are invalid for patients with abnormal amounts of HbF. Blood transfusions may impact the HbA1c concentration in the patient sample. Estimated Average Glucose 117 mg/dL [facility] Comment:eAG = Estimated ave rage glucose which is %A1C expressed asaverage glucose, using the formula of the L4Q-EfunddhAfzzrfm Glucose study (ADAG), Diabetes Care, Vol.31,#8,Apr. 2007 06/18/2024 9:29 AM EDT 06/18/2024 9:29 AM EDT us Generic External Data Provider LAB BLOOD ORDERAB LES Final Result [facility] [address] [place] [phone] * (ABNORMAL) Lipid Panel, Standard (02/11/2024 8:33 AM EDT) Triglycerides 161(H) <150 mg/dL [facility] Comment:Desirable Triglyceri de: less than 150 mg/dLBorderline High Triglyceride 150-199 mg/dLHigh Triglyceride: 200-499 mg/dLVery High Triglyceride: greater than or equal to 5OO mg/dL Cholesterol 214(H) <200 mg/dL [facility] Comment:Desirable Cholestero l: less than 200 mg/dLBorderline High Cholesterol: 200-239 mg/dLHigh Cholesterol: greater than 239 mg/dL LDL Cholesterol Calculated 142(H) <100 mg/dL [facility] Comment:Desirable LDL: less than 100 mg/dLNear Optimal/Above Optimal LDL: 110- 129 mg/dLBorderline High LDL: 130-159 mg/dLHigh LDL: 160-189 mg/dLVery High LDL: greater than or equal to 190 mg/dL HDL Cholesterol 40(L) >40 mg/dL [facility] Comment:Desirable HDL: great er than 40 mg/dL Note: This HDL assay may give artificially low results in patients with liver disease. Blood Venous blood specimen / Unknown 02/11/2024 8:33 AM EDT 02/11/2024 8:33 AM EDT us Keara Brito MD LAB BLOOD ORDERABLES Final Result [facility] [address] [place] [phone] * HEPATITIS C AB W/REFL TO HCV RNA, QN, PCR (08/18/2021 10:53 AM EST) HEPATITIS C ANTIBODY NON-REACT ELADIO NON-REACT ELADIO [facility] INDEX 0.02 <1.00 [facility] Comment: ?? HCV antibody was non-reactive. There is no laboratory ?? evidence of HCV infection. ?? In most cases, no further action is required. However, if recent HCV exposure is suspected, a test for HCV RNA (test code 87586) is suggested. ?? For additional information please refer to http://[employer]/faq/TPP35r4 (This link is being provided for informational/ educational purposes only.) ?? 08/18/2021 10:5 3 AM EST Cindy Dorado NP HISTORICAL/NON ORDERABLE LABS F inal Result [facility] [address] * HIV 1/2 ANTIGEN/ANTIBODY,FOURTH GENERATION W/RFL (08/18/2021 10:53 AM EST) HIV-1/2 ANTIGEN AND ANTIBODIES, 4TH GENERATION W/ REFLEX NON-REACT ELADIO NON-REACT ELADIO [facility] Comment: HIV-1 antigen and HIV-1/HIV-2 [...] ? For additional information please refer to http://education.[employer]/faq/RGK415 (This link is being provided for informational/ educational purposes only.) ? The performance of this assay has not been clinically validated in patients less than 2 years old. ?? 08/18/2021 10:5 3 AM EST us Cindy Dorado [employer] LAB BLOOD ORDERABLES Final Resu lt [facility] [address] from Last 3 Months or Most Recently Relevant to Health Maintenance Insurance * Guarantor: Jordan Merlos Account Type Relation to Patient Date of Phone Billing Address Personal/Family Self 1985 [address] [place] [address] [employer] * Guarantor: Jordan Merlos Account Type Relation to Patient Date of Phone Billing Address Personal/Family Self 1985 [address] [place] [address] * Guarantor: Jordan Merlos Account Type Relation to Patient Date of Phone Billing Address Personal/Family Self 1985 [address] [place] [address] * Guarantor: Jordan Merlos Account Type Relation to Patient Date of Phone Billing Address Personal/Family Self 1985 [address] [place] [address] Care Teams Business Administrator Relationship Specialty Start Date End Date Keara Leiva MD [address] [place] [phone] PCP - General Family Medicine 08/24/18
--- OUTSIDE RECORDS SUMMARY | 2024-11-22 15:53 | XMS_ITS | Encounter Summary ---
Demographics Address [address] [place] [address] [address] [place] [address] Mobile Phone Home Phone Work Phone Email Address Preferred Language es Marital Status Presybeterian Affiliation Unknown Race Other Race Ethnic Group or Author Organization [facility] Address [address] [place] [address] [address] [place] [address] Care Team Providers Care Hunter Name Role Phone Keara Leiva MD Primary [...] on filedocumented in this encounter Care Teams Hunter Relationship Specialty Start Date End Date Keara Leiva MD [address] [place] [phone] PCP - General Family Medicine 08/24/18 documented as of this encounter
[2024-11-22 18:13] LABS: Influenza A PCR NEGATIVE (Negative); Influenza B PCR NEGATIVE (Negative); Resp Syncy Virus RNA Qual PCR NEGATIVE (Negative); SARS COV2 PCR INHOUSE NEGATIVE (Negative)
== END 2024-11-22 09:10 | disposition home or self-care (01) ==
LOC: HO.LNP 09:09
PROVIDERS: PCP Internal Medicine
DX: J45.901 Unspecified asthma with (acute) exacerbation (principal); R05.8 Other specified cough
CPT/HCPCS: 0241U